=== PATIENT | male | born 1955 | race African-American/Black ===

== ENCOUNTER 2016-10-01 10:23 | Emergency (ER) | payer OTHER ==
[2016-10-01] MEDS ORDERED: METOCLOPRAMIDE HCL ORAL SOLN 10 MG/10 ML UDCUP PO ONE (11:03)
[2016-10-01] MEDS ORDERED: LIDOCAINE 2% VISCOUS SOLN 20 ML UDCUP PO ONE (11:03)
[2016-10-01] MEDS ORDERED: MAG HYDROX/AL HYDROX/SIMETH SUSP 30 ML UDCUP PO ONE (11:03)
--- NOTE | 2016-10-01 11:09 | ER Document Report ---
ED GI/ - General Chief Complaint: Upper Abdominal Pain Stated Complaint: STOMACH PAIN Time Seen by Provider: 10/01/16 11:03 Notes: The patient is a 61-year-old male, past medical history GERD, cholecystectomy, occasional alcohol use, presents with 1 day of epigastric burning, similar to his prior episodes of GERD. He had an EGD which showed gastritis, but he is no longer taking a PPI or H2 amy. Patient denies nausea, vomiting, chest pain , back pain, fevers, headache or urinary symptoms TRAVEL OUTSIDE OF THE [place] IN LAST 30 DAYS: No - Related Data Allergies/Adverse Reactions: chlorthalidone [Chlorthalidone] Allergy (Verified 10/01/16 10:32) diazepam [From Valium] Allergy (Verified 10/01/16 10:32) hydrochlorothiazide [Hydrochlorothiazide] Allergy (Verified 10/01/16 10:32) lisinopril [Lisinopril] Allergy (Verified 10/01/16 10:32) meperidine HCl [From Demerol] Allergy (Verified 10/01/16 10:32) metoprolol [Metoprolol] Allergy (Verified 10/01/16 10:32) niacin [Niacin] Allergy (Verified 10/01/16 10:32) saccharin [Saccharin] Allergy (Verified 10/01/16 10:32) terazosin [Terazosin] Allergy (Verified 10/01/16 10:32) tiotropium bromide [From Spiriva with HandiHaler] Allergy (Verified 10/01/16 10: 32) Past Medical History - General Information source: Patient - Social History Smoking Status: Former Smoker Frequency of alcohol use: Occasional Drug Abuse: None Family History: Reviewed & Not Pertinent Patient has suicidal ideation: No Patient has homicidal ideation: No - Past Medical History Cardiac Medical History: Reports: Hx Heart Attack, Hx Hypercholesterolemia, Hx Hypertension Pulmonary Medical History: Reports: Hx COPD Denies: Hx Asthma Renal/ Medical History: Denies: Hx Peritoneal Dialysis GI Medical History: Reports: Hx Gastroesophageal Reflux Disease Past Surgical History: Reports: Hx Cholecystectomy, Hx Neurologic Surgery - leaking csf fluid from ear, Hx Orthopedic Surgery - foot - Immunizations Immunizations up to date: Yes Hx Diphtheria, Pertussis, Tetanus Vaccination: Yes Review of Systems - Review of Systems Notes: REVIEW OF SYSTEMS: CONSTITUTIONAL: -fevers, -chills EENT: -eye pain, -difficulty swallowing, -nasal congestion CARDIOVASCULAR:-chest pain, -syncope. RESPIRATORY: -cough, -SOB GASTROINTESTINAL: +epigastric abdominal pain, -nausea, -vomiting, -diarrhea GENITOURINARY: -dysuria, -hematuria MUSCULOSKELETAL: -back pain, -neck pain SKIN: -rash or skin lesions. HEMATOLOGIC: -easy bruising or bleeding. LYMPHATIC: -swollen, enlarged glands. NEUROLOGICAL: -altered mental status or loss of consciousness, -headache, - neurologic symptoms PSYCHIATRIC: -anxiety, -depression. ALL OTHER SYSTEMS REVIEWED AND NEGATIVE. Physical Exam - Notes Notes: PHYSICAL EXAMINATION: GENERAL: Well-appearing, well-nourished and in no acute distress. HEAD: Atraumatic, normocephalic. EYES: Pupils equal round and reactive to light, extraocular movements intact, sclera anicteric, conjunctiva are normal. ENT: nares patent, oropharynx clear without exudates. Moist mucous membranes. NECK: Normal range of motion, supple without lymphadenopathy LUNGS: Breath sounds clear to auscultation bilaterally and equal. No wheezes rales or rhonchi. HEART: Regular rate and rhythm without murmurs ABDOMEN: Soft, mild epigastric tenderness, normoactive bowel sounds. No guarding, no rebound. No masses appreciated. EXTREMITIES: Normal range of motion, no pitting or edema. No cyanosis. NEUROLOGICAL: Cranial nerves grossly intact. Normal speech, normal gait. Normal sensory and motor exams. PSYCH: Normal mood, normal affect. SKIN: Warm, Dry, normal turgor, no rashes or lesions noted. Course - Re-evaluation Re-evalutation: Labs are unremarkable, including a normal lipase and troponin levels. EKG does not show any active ischemia. After GI cocktail, patient feels much better. Will send home with [facility] and follow-up with his GI doctor. - Laboratory Result Diagrams: 10/01/16 11:20 10/01/16 11:20 Laboratory results interpreted by me: 10/01/16 10/01/16 11:20 11:20 WBC 2.9 L Hgb 13.3 L Seg Neutrophils % 37.4 L Monocytes % 18.4 H Eosinophils % 7.1 H Basophils % 3.4 H Absolute Neutrophils 1.1 L Potassium 5.1 H Creatine Kinase 263 H Discharge - Discharge Clinical Impression: Epigastric pain Condition: Good Disposition: HOME, SELF-CARE Additional Instructions: Reflux Disease (GERD) Gastro-Esophageal Reflux Disease (GERD) is caused by stomach acid refluxing back up into the esophagus. The valve at the end of the esophagus may be weak. This is common in persons with a hiatal hernia. GERD symptoms can include indigestion, chest pain, heartburn, or food "sticking." Certain foods, alcohol, and aspirin can make GERD worse. Treatment depends on the severity. Usually, antacids or acid-suppressing medicines are used. When the esophagus is acutely inflamed, the physician will often prescribe membrane-protective drugs such as Carafate. Some patients benefit from medication such as Reglan that tightens the valve at the top of the stomach. Avoid those foods that bring on your symptoms. For many people, these foods are coffee, chocolate, onions, garlic, and carbonated drinks. Don't use alcohol, aspirin, caffeine, or tobacco. Don't eat late at night -- within 4 hours of bedtime. Don't over-eat. If necessary, elevate the head of your bed about 4 inches so that stomach acid will not roll up into your esophagus. Call the doctor if you develop severe chest pain, inability to swallow fluids, fever, or worsening symptoms. Prescriptions: Omeprazole Magnesium [Prilosec Otc] 20 mg PO BID #20 tablet.dr Referrals: VALDEZ TRIANA MD [ACTIVE STAFF] - Follow up as needed
[2016-10-01 11:41] LABS: ABSOLUTE BASOPHILS # (AUTO) 0.1 10^3/uL (0.0-0.2); ABSOLUTE EOSINOPHILS # (AUTO) 0.2 10^3/uL (0.0-0.6); ABSOLUTE MONOCYTES (AUTO) 0.5 10^3/uL (0.1-1.4); ABSOLUTE NEUT (AUTO) 1.1 10^3/uL (1.7-8.2); BASOPHILS % (AUTO) 3.4 % (0-2); EOSINOPHILS % (AUTO) 7.1 % (0-6); HEMATOCRIT 39.8 % (37.9-51.0); HEMOGLOBIN 13.3 g/dL (13.5-17.0); HGB HCT DIFFERENCE 0.1; LYMPHOCYTES % (AUTO) 33.7 % (13-45); MEAN CORPUSCULAR HEMOGLOBIN 30.3 pg (27.0-33.4); MEAN CORPUSCULAR HGB CONC 33.3 g/dL (32.0-36.0); MEAN CORPUSCULAR VOLUME 91 fl (80-97); MONOCYTES % (AUTO) 18.4 % (3-13); RED BLOOD COUNT 4.37 10^6/uL (4.35-5.55); RED CELL DISTRIBUTION WIDTH 13.7 % (11.5-14.0); SEGMENTED NEUTROPHILS % (AUTO) 37.4 % (42-78); WHITE BLOOD COUNT 2.9 10^3/uL (4.0-10.5)
--- NOTE | 2016-10-01 11:52 | EKG REPORT ---
SEVERITY:- OTHERWISE NORMAL ECG - SINUS RHYTHM RIGHT AXIS DEVIATION : Confirmed by: Jhonny Carpenter MD 01-Oct-2016 11:52:15
[2016-10-01 12:03] LABS: ALANINE AMINOTRANSFERASE 32 U/L (21-72); ALBUMIN 4.2 g/dL (3.5-5.0); ALKALINE PHOSPHATASE 56 U/L (38-126); ANION GAP 10 (5-19); ASPARTATE AMINO TRANSFERASE 25 U/L (17-59); BILIRUBIN,DIRECT 0.3 mg/dL (0.0-0.4); BILIRUBIN,TOTAL 0.5 mg/dL (0.2-1.3); BLOOD UREA NITROGEN 8 mg/dL (7-20); CALCIUM 9.7 mg/dL (8.4-10.2); CARBON DIOXIDE 30 mmol/L (22-30); CHLORIDE 101 mmol/L (98-107); CREATINE KINASE 263 U/L (55-170); CREATININE RESULT 0.93 mg/dL (0.52-1.25); GLUCOSE 109 mg/dL (75-110); LIPASE 55.5 U/L (23-300); POTASSIUM 5.1 mmol/L (3.6-5.0); SODIUM 140.9 mmol/L (137-145); TOTAL PROTEIN 6.8 g/dL (6.3-8.2)
[2016-10-01 12:30] VITALS: BP 128/95
== END 2016-10-01 12:30 | disposition home or self-care (01) ==
LOC: ER 10:23
DX: R10.13 Epigastric pain (principal); I10 Essential (primary) hypertension; I25.2 Old myocardial infarction; Z87.19 Personal history of other diseases of the digestive system; Z90.49 Acquired absence of other specified parts of digestive tract; Z88.8 Allergy status to other drugs, medicaments and biological substances; Z88.5 Allergy status to narcotic agent; Z87.891 Personal history of nicotine dependence
CPT/HCPCS: 36415; 80053; 82550; 83690; 84484; 85025; 93005; 93010; 99284

== ENCOUNTER 2017-02-16 12:59 | Emergency (ER) | payer OTHER ==
[2017-02-16] MEDS ORDERED: IPRATROPIUM/ALBUTEROL 0.5-2.5 MG/3 ML AMPUL NEB ONE ×3 (13:31)
[2017-02-16] MEDS ORDERED: PREDNISONE 20 MG TABLET PO ONE (13:31)
--- NOTE | 2017-02-16 13:34 | ER Document Report ---
ED General - General Chief Complaint: Shortness Of Breath Stated Complaint: DIFFICULTY BREATHING Time Seen by Provider: 02/16/17 13:31 Mode of Arrival: Ambulatory Information source: Patient Notes: 61-year-old male history of COPD presents with complaints of shortness of breath yellow productive cough of one-week duration. Patient states this feels like COPD exacerbation. Patient has been trying breathing treatments at home. Normally sats between 94-90%. TRAVEL OUTSIDE OF THE [place] IN LAST 30 DAYS: No - HPI Onset: Last week Onset/Duration: Persistent Quality of pain: No pain Severity: Mild Pain Level: Denies Associated symptoms: Productive cough, Shortness of breath Exacerbated by: Coughing Relieved by: Denies Similar symptoms previously: Yes Recently seen / treated by doctor: Yes - Related Data Allergies/Adverse Reactions: chlorthalidone [Chlorthalidone] Allergy (Verified 10/01/16 10:32) diazepam [From Valium] Allergy (Verified 10/01/16 10:32) hydrochlorothiazide [Hydrochlorothiazide] Allergy (Verified 10/01/16 10:32) lisinopril [Lisinopril] Allergy (Verified 10/01/16 10:32) meperidine HCl [From Demerol] Allergy (Verified 10/01/16 10:32) metoprolol [Metoprolol] Allergy (Verified 10/01/16 10:32) niacin [Niacin] Allergy (Verified 10/01/16 10:32) saccharin [Saccharin] Allergy (Verified 10/01/16 10:32) terazosin [Terazosin] Allergy (Verified 10/01/16 10:32) tiotropium bromide [From Spiriva with HandiHaler] Allergy (Verified 10/01/16 10: 32) Past Medical History - Social History Smoking Status: Former Smoker Cigarette use (# per day): No Chew tobacco use (# tins/day): No Smoking Education Provided: No Frequency of alcohol use: Occasional Drug Abuse: None Family History: Reviewed & Not Pertinent - Past Medical History Cardiac Medical History: Reports: Hx Heart Attack, Hx Hypercholesterolemia, Hx Hypertension Pulmonary Medical History: Reports: Hx COPD Denies: Hx Asthma Renal/ Medical History: Denies: Hx Peritoneal Dialysis GI Medical History: Reports: Hx Gastroesophageal Reflux Disease Past Surgical History: Reports: Hx Cholecystectomy, Hx Neurologic Surgery - leaking csf fluid from ear, Hx Orthopedic Surgery - foot - Immunizations Immunizations up to date: Yes Hx Diphtheria, Pertussis, Tetanus Vaccination: Yes Review of Systems - Review of Systems Notes: REVIEW OF SYSTEMS: CONSTITUTIONAL : Denies fever, chills, or sweats. Denies recent illness. EENT: Denies eye, ear, throat, or mouth pain or symptoms. Denies nasal or sinus congestion or discharge. Denies throat, tongue, or mouth swelling or difficulty swallowing. CARDIOVASCULAR: Denies chest pain. Denies palpitations or racing or irregular heart beat. Denies ankle edema. RESPIRATORY: shortness of breath cough GASTROINTESTINAL: Denies abdominal pain or distention. Denies nausea, vomiting , or diarrhea. Denies blood in vomitus, stools, or per rectum. Denies black, tarry stools. Denies constipation. GENITOURINARY: Denies difficulty urinating, painful urination, burning, frequency, blood in urine, or discharge. MUSCULOSKELETAL: Denies back or neck pain or stiffness. Denies joint pain or swelling. SKIN: Denies rash, lesions or sores. HEMATOLOGIC : Denies easy bruising or bleeding. LYMPHATIC: Denies swollen, enlarged glands. NEUROLOGICAL: Denies confusion or altered mental status. Denies passing out or loss of consciousness. Denies dizziness or lightheadedness. Denies headache. Denies weakness or paralysis or loss of use of either side. Denies problems with gait or speech. Denies sensory loss, numbness, or tingling. Denies seizures. PSYCHIATRIC: Denies anxiety or stress. Denies depression, suicidal ideation, or homicidal ideation. ALL OTHER SYSTEMS REVIEWED AND NEGATIVE. Dictation was performed using [employer] voice recognition software PHYSICAL EXAMINATION: GENERAL: Well-appearing, well-nourished and in no acute distress. HEAD: Atraumatic, normocephalic. EYES: Pupils equal round and reactive to light, extraocular movements intact, sclera anicteric, conjunctiva are normal. ENT: Nares patent, oropharynx clear without exudates. Moist mucous membranes. NECK: Normal range of motion, supple without lymphadenopathy LUNGS: decreased breath sounds no resp distress HEART: Regular rate and rhythm without murmurs ABDOMEN: Soft, nontender, nondistended abdomen. No guarding, no rebound. No masses appreciated. Musculoskeletal: Normal range of motion, no pitting or edema. No cyanosis. NEUROLOGICAL: Cranial nerves grossly intact. Normal speech, normal gait. Normal sensory, motor exams PSYCH: Normal mood, normal affect. SKIN: Warm, Dry, normal turgor, no rashes or lesions noted. Physical Exam - Vital signs Vitals: Temp Pulse Resp BP Pulse Ox 98 F 109 H 18 155/99 H 94 02/16/17 13:03 02/16/17 13:03 02/16/17 13:03 02/16/17 13:03 02/16/17 13:03 Course - Re-evaluation Re-evalutation: 02/16/17 13:34 Patient has probable COPD exacerbation 02/16/17 14:26 Chest x-ray is consistent with COPD no pneumonia noted 02/16/17 15:32 Patient notes significant improvement of his breathing after breathing treatments He will be discharged home with steroids. O2 sat on my recheck was 96% After performing a Medical Screening Examination, I estimate there is LOW risk for ACUTE CORONARY SYNDROME, RESPIRATORY FAILURE, SEPSIS OR MENINGITIS, thus I consider the discharge disposition reasonable. I have reevaluated this patient multiple times and no significant life threatening changes are noted. The patient and I have discussed the diagnosis and risks, and we agree with discharging home with close follow-up. We also discussed returning to the Emergency Department immediately if new or worsening symptoms occur. We have discussed the symptoms which are most concerning (e.g., changing or worsening pain, trouble swallowing or breathing, neck stiffness, fever) that necessitate immediate return. - Vital Signs Vital signs: Temp Pulse Resp BP Pulse Ox 98 F 109 H 18 155/99 H 94 02/16/17 13:03 02/16/17 13:03 02/16/17 13:18 02/16/17 13:03 02/16/17 13:03 - Diagnostic Test Radiology reviewed: Image reviewed, Reports reviewed - copd Discharge - Discharge Clinical Impression: COPD exacerbation, SOB (shortness of breath) Condition: Stable Disposition: HOME, SELF-CARE Instructions: Chronic Obstructive Lung Disease ([facility]) Additional Instructions: Follow up with your physician tomorrow for further care or return to the ED IMMEDIATELY if symptoms worsen or new concerns occur. If you cannot afford to follow up with your primary care physician a list of low cost clinics have been provided at the end of your discharge papers as well. Prescriptions: Prednisone [Deltasone 20 mg Tablet] 3 tab PO DAILY 5 Days tablet
--- NOTE | 2017-02-16 14:18 | RADIOLOGY REPORT (SQ) ---
EXAM DESCRIPTION: CHEST PA/LAT COMPLETED DATE/TIME: 02/16/2017 2:10 pm REASON FOR STUDY: copd exacerbvation COMPARISON: 04/22/2016 NUMBER OF VIEWS: Two view. TECHNIQUE: Frontal and lateral radiographic views of the chest acquired. LIMITATIONS: None. FINDINGS: LUNGS AND PLEURA: No opacities, masses or pneumothorax. No pleural effusion. Attenuated bl ood vessels and flattened elvis-diaphragms. MEDIASTINUM AND HILAR STRUCTURES: No masses. No contour abnormalities. HEART AND VASCULAR STRUCTURES: Heart normal in size and contour. No evidence for failure. BONES: No acute findings. HARDWARE: None in the chest. OTHER: No other significant finding. IMPRESSION: COPD. NO ACUTE RADIOGRAPHIC FINDING IN THE CHEST. TECHNICAL DOCUMENTATION: JOB ID: [id number] 2043 [employer]- All Rights Reserved
[2017-02-16 16:35] VITALS: BP 141/99
== END 2017-02-16 15:45 | disposition home or self-care (01) ==
LOC: ER 12:59
DX: J44.1 Chronic obstructive pulmonary disease with (acute) exacerbation (principal); R06.02 Shortness of breath; R05 Cough; I10 Essential (primary) hypertension; I25.2 Old myocardial infarction; Z88.8 Allergy status to other drugs, medicaments and biological substances; Z88.5 Allergy status to narcotic agent; Z87.891 Personal history of nicotine dependence
CPT/HCPCS: 94640 ×2; 99284; 71020; J7512; J7620

== ENCOUNTER 2017-06-09 04:59 | Emergency (ER) | payer OTHER ==
[2017-06-09] MEDS ORDERED: NORMAL SALINE 1000 ML 1,000 ML IV ONE ×3 (05:21→05:28)
[2017-06-09] MEDS ORDERED: ACETAMINOPHEN 325 MG TABLET PO ONE (05:26)
[2017-06-09] MEDS ORDERED: ALBUTEROL SULFATE 0.083% NEB 2.5 MG/3 ML AMPUL NEB ONE (05:29)
[2017-06-09] MEDS ORDERED: MAGNESIUM SULFATE/D5W 1 GM/100 ML RTUPB IV ONE (05:29)
[2017-06-09] MEDS ORDERED: METHYLPREDNISOLONE INJ 125 MG/2 ML SDV IV ONE (05:29)
--- NOTE | 2017-06-09 05:31 | ER Document Report ---
ED Medical Screen (RME) - General Chief Complaint: Breathing Difficulty Stated Complaint: FLU LIKE SYMPTOMS Time Seen by Provider: 06/09/17 05:21 Information source: Patient Notes: Patient presents with cough and fever with diarrhea that started yesterday. Patient states difficulty breathing started tonight. Patient reports having numerous episodes of diarrhea today. Patient denies any nausea or vomiting. Patient has recently been exposed to his sister who tested positive for influenza type A. hx: COPD I have greeted and performed a rapid initial assessment of this patient. A comprehensive ED assessment and evaluation of the patient, analysis of test results and completion of the medical decision making process will be conducted by additional ED providers. TRAVEL OUTSIDE OF THE [place] IN LAST 30 DAYS: No - Related Data Allergies/Adverse Reactions: chlorthalidone [Chlorthalidone] Allergy (Verified 10/01/16 10:32) diazepam [From Valium] Allergy (Verified 10/01/16 10:32) hydrochlorothiazide [Hydrochlorothiazide] Allergy (Verified 10/01/16 10:32) lisinopril [Lisinopril] Allergy (Verified 10/01/16 10:32) meperidine HCl [From Demerol] Allergy (Verified 10/01/16 10:32) metoprolol [Metoprolol] Allergy (Verified 10/01/16 10:32) niacin [Niacin] Allergy (Verified 10/01/16 10:32) saccharin [Saccharin] Allergy (Verified 10/01/16 10:32) terazosin [Terazosin] Allergy (Verified 10/01/16 10:32) tiotropium bromide [From Spiriva with HandiHaler] Allergy (Verified 10/01/16 10: 32) Past Medical History - Social History Family history: Reviewed & Not Pertinent - Past Medical History Cardiac Medical History: Reports: Hx Heart Attack, Hx Hypercholesterolemia, Hx Hypertension Pulmonary Medical History: Reports: Hx COPD Denies: Hx Asthma Renal/ Medical History: Denies: Hx Peritoneal Dialysis GI Medical History: Reports: Hx Gastroesophageal Reflux Disease Past Surgical History: Reports: Hx Cholecystectomy, Hx Neurologic Surgery - leaking csf fluid from ear, Hx Orthopedic Surgery - foot - Immunizations Immunizations up to date: Yes Hx Diphtheria, Pertussis, Tetanus Vaccination: Yes History of Influenza Vaccine for 02/2017 - 07/2017 Season: Refused Physical Exam - Vital signs Vitals: Temp Pulse Resp BP Pulse Ox 102.7 F H 146 H 32 H 146/89 H 90 L 06/09/17 05:26 06/09/17 05:26 06/09/17 05:06/09/17 05:06/09/17 05:26 - General In distress: Moderate - Cardiovascular Rhythm: Tachycardia Heart sounds: S1 appreciated, S2 appreciated Murmur: No Course - Re-evaluation Re-evalutation: 06/09/17 05:31 Dr. Villa to bedside for exam, BiPAP ordered 06/09/17 05:35 Patient's heart rate 130s, RT at bedside to initiate BiPAP - Vital Signs Vital signs: Temp Pulse Resp BP Pulse Ox 102.7 F H 146 H 32 H 146/89 H 90 L 06/09/17 05:26 06/09/17 05:26 06/09/17 05:26 06/09/17 05:26 06/09/17 05:26
[2017-06-09 05:49] LABS: ABSOLUTE LYMPHOCYTES (AUTO) 0.5 10^3/uL (0.5-4.7); ABSOLUTE MONOCYTES (AUTO) 0.7 10^3/uL (0.1-1.4); ABSOLUTE NEUT (AUTO) 5.4 10^3/uL (1.7-8.2); BASOPHILS % (AUTO) 0.7 % (0-2); EOSINOPHILS % (AUTO) 0.1 % (0-6); HEMATOCRIT 46.8 % (37.9-51.0); LYMPHOCYTES % (AUTO) 6.8 % (13-45); MEAN CORPUSCULAR HEMOGLOBIN 31.4 pg (27.0-33.4); MEAN CORPUSCULAR HGB CONC 34.2 g/dL (32.0-36.0); MEAN CORPUSCULAR VOLUME 92 fl (80-97); MONOCYTES % (AUTO) 11.1 % (3-13); PLATELET COUNT 218 10^3/uL (150-450); RED BLOOD COUNT 5.11 10^6/uL (4.35-5.55); RED CELL DISTRIBUTION WIDTH 13.8 % (11.5-14.0); SEGMENTED NEUTROPHILS % (AUTO) 81.3 % (42-78); TOTAL CELLS COUNTED % (AUTO) 100 %; WHITE BLOOD COUNT 6.7 10^3/uL (4.0-10.5)
[2017-06-09 05:53] LABS: VENOUS BLOOD BASE EXCESS 1.9 mmol/L; VENOUS BLOOD HCO3 28.2 mmol/L (20-32); VENOUS BLOOD PCO2 49.5 mmHg (35-63); VENOUS BLOOD PH 7.37 (7.30-7.42)
--- NOTE | 2017-06-09 06:09 | RADIOLOGY REPORT (SQ) ---
EXAM DESCRIPTION: CHEST SINGLE VIEW CLINICAL HISTORY: cough COMPARISON: None. FINDINGS: Single frontal view of the chest. The cardiomediastinal silhouette has normal size and contour. No consolidation, pneumothorax, or pleural effusion. No displaced rib fractures identified. Hyperinflation. Upper abdominal soft tissues are unremarkable. IMPRESSION: 1. No acute pulmonary process identified. Findings suggest obstructive lung disease.
[2017-06-09 06:11] LABS: INTERNATIONAL RATION (INR) 0.97; PROTHROMBIN TIME 13.6 SEC (11.4-15.4)
[2017-06-09 06:13] LABS: A TYPE INFLUENZA AG NEGATIVE (NEGATIVE); B INFLUENZA AG NEGATIVE (NEGATIVE)
[2017-06-09] MEDS ORDERED: OSELTAMIVIR PHOSPHATE 75 MG CAPSULE PO ONE (06:29)
--- NOTE | 2017-06-09 06:35 | ER Document Report ---
ED General - General Chief Complaint: Breathing Difficulty Stated Complaint: FLU LIKE SYMPTOMS Time Seen by Provider: 06/09/17 05:21 Mode of Arrival: Ambulatory Information source: Patient TRAVEL OUTSIDE OF THE [place] IN LAST 30 DAYS: No - HPI Notes: Patient presents with cough and fever with diarrhea that started yesterday. Patient states difficulty breathing started tonight. Patient reports having numerous episodes of diarrhea today. Patient denies any nausea or vomiting. Patient has recently been exposed to his sister who tested positive for influenza type A. hx: COPD Patient reports he is out of his Advair. Patient denies any chest pain. No abd pain. - Related Data Allergies/Adverse Reactions: chlorthalidone [Chlorthalidone] Allergy (Verified 10/01/16 10:32) diazepam [From Valium] Allergy (Verified 10/01/16 10:32) hydrochlorothiazide [Hydrochlorothiazide] Allergy (Verified 10/01/16 10:32) lisinopril [Lisinopril] Allergy (Verified 10/01/16 10:32) meperidine HCl [From Demerol] Allergy (Verified 10/01/16 10:32) metoprolol [Metoprolol] Allergy (Verified 10/01/16 10:32) niacin [Niacin] Allergy (Verified 10/01/16 10:32) saccharin [Saccharin] Allergy (Verified 10/01/16 10:32) terazosin [Terazosin] Allergy (Verified 10/01/16 10:32) tiotropium bromide [From Spiriva with HandiHaler] Allergy (Verified 10/01/16 10: 32) Past Medical History - General Information source: Patient - Social History Smoking Status: Former Smoker Frequency of alcohol use: None Family History: Reviewed & Not Pertinent Patient has suicidal ideation: No Patient has homicidal ideation: No - Past Medical History Cardiac Medical History: Reports: Hx Heart Attack, Hx Hypercholesterolemia, Hx Hypertension Pulmonary Medical History: Reports: Hx COPD Denies: Hx Asthma Renal/ Medical History: Denies: Hx Peritoneal Dialysis GI Medical History: Reports: Hx Gastroesophageal Reflux Disease Past Surgical History: Reports: Hx Cholecystectomy, Hx Neurologic Surgery - leaking csf fluid from ear, Hx Orthopedic Surgery - foot - Immunizations Immunizations up to date: Yes Hx Diphtheria, Pertussis, Tetanus Vaccination: Yes Review of Systems - Review of Systems Notes: REVIEW OF SYSTEMS: CONSTITUTIONAL : Denies weight loss. EENT: Denies eye, ear, throat, or mouth pain or symptoms. Denies nasal or sinus congestion or discharge. Denies throat, tongue, or mouth swelling or difficulty swallowing. CARDIOVASCULAR: Denies chest pain. Denies palpitations or racing or irregular heart beat. Denies ankle edema. RESPIRATORY: Reports dyspnea and wheezing. GASTROINTESTINAL: Denies abdominal pain or distention. Denies nausea, vomiting. Denies blood in vomitus, stools, or per rectum. Denies black, tarry stools. Denies constipation. GENITOURINARY: Denies difficulty urinating, painful urination, burning, frequency, blood in urine, or discharge. MUSCULOSKELETAL: Denies back or neck pain or stiffness. Denies joint pain or swelling. SKIN: Denies rash, lesions or sores. HEMATOLOGIC : Denies easy bruising or bleeding. LYMPHATIC: Denies swollen, enlarged glands. NEUROLOGICAL: Denies confusion or altered mental status. Denies passing out or loss of consciousness. Denies dizziness or lightheadedness. Denies headache. Denies weakness or paralysis or loss of use of either side. Denies problems with gait or speech. Denies sensory loss, numbness, or tingling. Denies seizures. PSYCHIATRIC: Denies anxiety or stress. Denies depression, suicidal ideation, or homicidal ideation. ALL OTHER SYSTEMS REVIEWED AND NEGATIVE. Dictation was performed using [employer] voice recognition software Physical Exam - Vital signs Vitals: Temp Pulse Resp BP Pulse Ox 102.7 F H 146 H 32 H 146/89 H 90 L 06/09/17 05:26 06/09/17 05:26 06/09/17 05:26 06/09/17 05:06/09/17 05:26 - Notes Notes: PHYSICAL EXAMINATION: GENERAL: Well-appearing, well-nourished and in no acute distress after being placed on BiPAP. HEAD: Atraumatic, normocephalic. EYES: Pupils equal round and reactive to light, extraocular movements intact, sclera anicteric, conjunctiva are normal. ENT: Nares patent, oropharynx clear without exudates. Moist mucous membranes. NECK: Normal range of motion, supple without lymphadenopathy LUNGS: Breath course with scant wheeze. HEART: Tachycardic rate and regular rhythm without murmurs. Rate 115 ABDOMEN: Soft, nontender, nondistended abdomen. No guarding, no rebound. No masses appreciated. Musculoskeletal: Normal range of motion, no pitting or edema. No cyanosis. NEUROLOGICAL: Cranial nerves grossly intact. Normal speech, normal gait. Normal sensory, motor exams PSYCH: Normal mood, normal affect. SKIN: Warm, Dry, normal turgor, no rashes or lesions noted. Course - Re-evaluation Re-evalutation: 06/09/17 06:45 Patient was given DuoNeb treatment and Tylenol. Blood cultures were taken. Patient was given IV Solu-Medrol. On repeat exam wheezing was improved. The flu test was negative, but patient had some trouble performing the flu test. Given that the patient's sister that he lives with was positive for the flu, it is strongly assume that the patient did have the flu and patient was given Tamiflu by mouth. 06/09/17 06:46 Patient was bolused with IV fluids. Chest x-ray was negative. There is no evidence for congestive heart failure or obvious pneumonia. 06/09/17 11:58 Repeat lactate was improved. Repeat exam patient had scant wheeze was given additional nebulizer treatment. Afterwards he was watched for an additional few hours and had no wheezing and was ambulatory without complaint with stable O2 sats. No clinical suggestion for sepsis or pneumonia or systemic infection. - Vital Signs Vital signs: Temp Pulse Resp BP Pulse Ox 99.8 F 146 H 26 H 161/105 H 100 06/09/17 07:11 06/09/17 05:26 06/09/17 11:01 06/09/17 11:00 06/09/17 11:01 - Laboratory Result Diagrams: 06/09/17 05:29 06/09/17 06:56 Laboratory results interpreted by me: 06/09/17 06/09/17 06/09/17 05:29 05:29 06:56 Seg Neutrophils % 81.3 H Lymphocytes % 6.8 L Sodium 134.5 L Lactic Acid 2.5 H Calcium 8.1 L Total Protein 5.8 L Albumin 3.3 L Urine Ketones Urine Blood 06/09/17 09:08 Seg Neutrophils % Lymphocytes % Sodium Lactic Acid Calcium Total Protein Albumin Urine Ketones TRACE H Urine Blood SMALL H - EKG Interpretation by Me Additional EKG results interpreted by me: 06/09/17 06:47 EKG as interpreted by me showed sinus tachycardia heart rate of 135. There was no gross evidence for acute [place] or ischemia noted. There is no significant change from previous EKG from 10/01, with the exception of the tachycardic rate. Discharge - Discharge Clinical Impression: COPD with acute exacerbation, Influenza Fever Qualifiers: Fever type: unspecified Qualified Code(s): R50.9 - Fever, unspecified Condition: Stable Disposition: HOME, SELF-CARE Instructions: Chronic Obstructive Lung Disease ([facility]), Fever ([facility]), Influenza ( [facility]) [id number] Additional Instructions: Drink plenty fluids. Return to the emergency department in case of difficulty breathing or high fever. Prescriptions: Fluticasone/Salmeterol [Advair 250-50 Diskus 28 dose] 1 inh IH Q12H #1 inhaler Oseltamivir Phosphate [Tamiflu 75 mg Capsule] 75 mg PO BID #10 capsule Prednisone [Deltasone 10 mg Tablet] 10 mg PO ASDIR PRN #21 tablet PRN Reason: Referrals: EVA HUNT MD [COMMUNITY BASED STAFF] - Follow up as needed
[2017-06-09 07:32] LABS: ALANINE AMINOTRANSFERASE 34 U/L (21-72); ALBUMIN 3.3 g/dL (3.5-5.0); ALKALINE PHOSPHATASE 55 U/L (38-126); ANION GAP 6 (5-19); ASPARTATE AMINO TRANSFERASE 34 U/L (17-59); BILIRUBIN,DIRECT 0.2 mg/dL (0.0-0.4); BILIRUBIN,TOTAL 0.4 mg/dL (0.2-1.3); BLOOD UREA NITROGEN 17 mg/dL (7-20); CALCIUM 8.1 mg/dL (8.4-10.2); CARBON DIOXIDE 27 mmol/L (22-30); CHLORIDE 102 mmol/L (98-107); GLUCOSE 105 mg/dL (75-110); POTASSIUM 4.6 mmol/L (3.6-5.0); SODIUM 134.5 mmol/L (137-145); TOTAL PROTEIN 5.8 g/dL (6.3-8.2)
[2017-06-09] MEDS ORDERED: IPRATROPIUM/ALBUTEROL 0.5-2.5 MG/3 ML AMPUL NEB ONE (09:23)
[2017-06-09 09:30] LABS: APPEARANCE,URINE SLIGHTLY-CLOUDY; BILIRUBIN,URINE NEGATIVE (NEGATIVE); COLOR,URINE YELLOW; GLUCOSE, URINE NEGATIVE (NEGATIVE); KETONES,URINE TRACE mg/dL (NEGATIVE); LEUKOCYTE ESTERASE,URINE NEGATIVE (NEGATIVE); NITRITE,URINE NEGATIVE (NEGATIVE); PROTEIN,URINE NEGATIVE (NEGATIVE); URINE SPECIFIC GRAVITY 1.012; UROBILINOGEN,URINE NEGATIVE mg/dL (<2.0)
--- NOTE | 2017-06-09 11:55 | EKG REPORT ---
SEVERITY:- ABNORMAL ECG - SINUS TACHYCARDIA RIGHT AXIS DEVIATION NONSPECIFIC T ABNORMALITIES, INFERIOR LEADS : Confirmed by: Gogo Méndez MD 09-Jun-2017 11:54:56
[2017-06-09 12:09] VITALS: BP 168/107
== END 2017-06-09 12:09 | disposition home or self-care (01) ==
LOC: ER 04:59
DX: J44.1 Chronic obstructive pulmonary disease with (acute) exacerbation (principal); J11.1 Influenza due to unidentified influenza virus with other respiratory manifestations; R50.9 Fever, unspecified; R00.0 Tachycardia, unspecified; R05 Cough; R19.7 Diarrhea, unspecified; I10 Essential (primary) hypertension; I25.2 Old myocardial infarction; Z88.8 Allergy status to other drugs, medicaments and biological substances; Z88.5 Allergy status to narcotic agent; Z87.891 Personal history of nicotine dependence
CPT/HCPCS: 93005; 94640; 99284; 96360; 96361; 36415; 87040; 87086; 82962; 83735; 85025; 85610; 87088; 80053; 81001; 87186; 82803; 83605; 87804; 71045; 93010; 94660; J2930; J3475; J3490; J7030; J7620

== ENCOUNTER 2017-06-17 19:00 | Emergency (ER) | payer OTHER ==
[2017-06-17] MEDS ORDERED: ACETAMINOPHEN 325 MG TABLET PO ONE (19:39)
[2017-06-17] MEDS ORDERED: NORMAL SALINE 1000 ML 1,000 ML IV ONE (19:39)
[2017-06-17] MEDS ORDERED: IPRATROPIUM/ALBUTEROL 0.5-2.5 MG/3 ML AMPUL NEB ONE (19:40)
[2017-06-17] MEDS ORDERED: CEFTRIAXONE 2 GM/D5W RTU 2 GM/50 ML RTUPB IV ONE (19:42)
--- NOTE | 2017-06-17 19:43 | ER Document Report ---
ED Medical Screen (RME) - General Chief Complaint: Breathing Difficulty Stated Complaint: BREATHING PROBLEMS Time Seen by Provider: 06/17/17 19:39 Notes: pt has cough/cold/fever/congestion. no relief from inhalers. seen here last week and states he feels no better. no relief from home meds. TRAVEL OUTSIDE OF THE [place] IN LAST 30 DAYS: No - Related Data Allergies/Adverse Reactions: chlorthalidone [Chlorthalidone] Allergy (Verified 06/17/17 19:39) diazepam [From Valium] Allergy (Verified 06/17/17 19:39) hydrochlorothiazide [Hydrochlorothiazide] Allergy (Verified 06/17/17 19:39) lisinopril [Lisinopril] Allergy (Verified 06/17/17 19:39) meperidine HCl [From Demerol] Allergy (Verified 06/17/17 19:39) metoprolol [Metoprolol] Allergy (Verified 06/17/17 19:39) niacin [Niacin] Allergy (Verified 06/17/17 19:39) saccharin [Saccharin] Allergy (Verified 06/17/17 19:39) terazosin [Terazosin] Allergy (Verified 06/17/17 19:39) tiotropium bromide [From Spiriva with HandiHaler] Allergy (Verified 06/17/17 19: 39) Past Medical History - Social History Chew tobacco use (# tins/day): No Frequency of alcohol use: None Drug Abuse: None Family history: Reviewed & Not Pertinent - Past Medical History Cardiac Medical History: Reports: Hx Heart Attack, Hx Hypercholesterolemia, Hx Hypertension Pulmonary Medical History: Reports: Hx COPD Denies: Hx Asthma Renal/ Medical History: Denies: Hx Peritoneal Dialysis GI Medical History: Reports: Hx Gastroesophageal Reflux Disease Past Surgical History: Reports: Hx Cholecystectomy, Hx Neurologic Surgery - leaking csf fluid from ear, Hx Orthopedic Surgery - foot - Immunizations Immunizations up to date: Yes Hx Diphtheria, Pertussis, Tetanus Vaccination: Yes History of Influenza Vaccine for 02/2017 - 07/2017 Season: Refused Physical Exam - Vital signs Vitals: Temp Pulse Resp BP Pulse Ox 99.6 F 127 H 18 141/96 H 92 06/17/17 19:24 06/17/17 19:24 06/17/17 19:24 06/17/17 19:24 06/17/17 19:24 Course - Vital Signs Vital signs: Temp Pulse Resp BP Pulse Ox 99.6 F 127 H 18 141/96 H 92 06/17/17 19:24 06/17/17 19:24 06/17/17 19:24 06/17/17 19:24 06/17/17 19:24
[2017-06-17 20:53] LABS: ABSOLUTE BASOPHILS # (AUTO) 0.1 10^3/uL (0.0-0.2); ABSOLUTE EOSINOPHILS # (AUTO) 0.1 10^3/uL (0.0-0.6); ABSOLUTE LYMPHOCYTES (AUTO) 1.7 10^3/uL (0.5-4.7); ABSOLUTE MONOCYTES (AUTO) 1.6 10^3/uL (0.1-1.4); ABSOLUTE NEUT (AUTO) 9.7 10^3/uL (1.7-8.2); EOSINOPHILS % (AUTO) 0.6 % (0-6); HEMOGLOBIN 15.1 g/dL (13.5-17.0); LYMPHOCYTES % (AUTO) 12.9 % (13-45); MEAN CORPUSCULAR HEMOGLOBIN 30.9 pg (27.0-33.4); MEAN CORPUSCULAR HGB CONC 33.5 g/dL (32.0-36.0); MEAN CORPUSCULAR VOLUME 92 fl (80-97); MONOCYTES % (AUTO) 12.2 % (3-13); PLATELET COUNT 423 10^3/uL (150-450); RED BLOOD COUNT 4.88 10^6/uL (4.35-5.55); RED CELL DISTRIBUTION WIDTH 13.7 % (11.5-14.0); SEGMENTED NEUTROPHILS % (AUTO) 73.3 % (42-78); TOTAL CELLS COUNTED % (AUTO) 100 %; WHITE BLOOD COUNT 13.2 10^3/uL (4.0-10.5)
[2017-06-17 20:55] LABS: VENOUS BLOOD BASE EXCESS 4.4 mmol/L; VENOUS BLOOD HCO3 31.1 mmol/L (20-32); VENOUS BLOOD PCO2 54.1 mmHg (35-63); VENOUS BLOOD PH 7.38 (7.30-7.42)
--- NOTE | 2017-06-17 20:59 | RADIOLOGY REPORT (SQ) ---
EXAM DESCRIPTION: CHEST PA/LAT COMPLETED DATE/TIME: 06/17/2017 8:42 pm REASON FOR STUDY: cough/congest COMPARISON: 2016 NUMBER OF VIEWS: Two view. TECHNIQUE: Frontal and lateral radiographic views of the chest acquired. LIMITATIONS: None. FINDINGS: LUNGS AND PLEURA: No opacities, masses or pneumothorax. No pleural effusion. Attenuated bl ood vessels and flattened elvis-diaphragms. MEDIASTINUM AND HILAR STRUCTURES: No masses. No contour abnormalities. HEART AND VASCULAR STRUCTURES: Heart normal in size and contour. No evidence for failure. BONES: No acute findings. HARDWARE: None in the chest. OTHER: No other significant finding. IMPRESSION: COPD. NO ACUTE RADIOGRAPHIC FINDING IN THE CHEST. TECHNICAL DOCUMENTATION: JOB ID: [id number] [employer]- All Rights Reserved
[2017-06-17] MEDS ORDERED: METHYLPREDNISOLONE INJ 125 MG/2 ML SDV IV ONE (21:08)
[2017-06-17 21:37] LABS: ALANINE AMINOTRANSFERASE 42 U/L (21-72); ALBUMIN 4.6 g/dL (3.5-5.0); ALKALINE PHOSPHATASE 63 U/L (38-126); ANION GAP 11 (5-19); ASPARTATE AMINO TRANSFERASE 39 U/L (17-59); BILIRUBIN,DIRECT 0.6 mg/dL (0.0-0.4); BLOOD UREA NITROGEN 14 mg/dL (7-20); CALCIUM 9.9 mg/dL (8.4-10.2); CARBON DIOXIDE 29 mmol/L (22-30); CHLORIDE 98 mmol/L (98-107); GLUCOSE 98 mg/dL (75-110); POTASSIUM 4.2 mmol/L (3.6-5.0); SODIUM 138.1 mmol/L (137-145); TOTAL PROTEIN 8.1 g/dL (6.3-8.2)
[2017-06-17 21:59] LABS: A TYPE INFLUENZA AG NEGATIVE (NEGATIVE); B INFLUENZA AG NEGATIVE (NEGATIVE)
[2017-06-17] MEDS ORDERED: ALBUTEROL SULFATE 0.083% NEB 2.5 MG/3 ML AMPUL NEB ONE (22:22)
--- NOTE | 2017-06-17 22:32 | EKG REPORT ---
SEVERITY:- OTHERWISE NORMAL ECG - SINUS TACHYCARDIA RIGHT AXIS DEVIATION : Confirmed by: Ramos Peñaloza 17-Jun-2017 22:32:13
[2017-06-18] MEDS ORDERED: CLONIDINE HCL 0.2 MG TABLET PO ONE (01:10)
--- NOTE | 2017-06-18 01:16 | ER Document Report ---
ED General - General Chief Complaint: Breathing Difficulty Stated Complaint: BREATHING PROBLEMS Time Seen by Provider: 06/17/17 19:39 Information source: Patient TRAVEL OUTSIDE OF THE [place] IN LAST 30 DAYS: No - HPI Patient complains to provider of: sob Onset: Last week Onset/Duration: Gradual, Waxing and waning Quality of pain: No pain Associated symptoms: Chills, Nonproductive cough, Shortness of breath Exacerbated by: Coughing Relieved by: Denies, Other - nebs and alb MDI at home without improvement - Related Data Allergies/Adverse Reactions: chlorthalidone [Chlorthalidone] Allergy (Verified 06/17/17 19:39) diazepam [From Valium] Allergy (Verified 06/17/17 19:39) hydrochlorothiazide [Hydrochlorothiazide] Allergy (Verified 06/17/17 19:39) lisinopril [Lisinopril] Allergy (Verified 06/17/17 19:39) meperidine HCl [From Demerol] Allergy (Verified 06/17/17 19:39) metoprolol [Metoprolol] Allergy (Verified 06/17/17 19:39) niacin [Niacin] Allergy (Verified 06/17/17 19:39) saccharin [Saccharin] Allergy (Verified 06/17/17 19:39) terazosin [Terazosin] Allergy (Verified 06/17/17 19:39) tiotropium bromide [From Spiriva with HandiHaler] Allergy (Verified 06/17/17 19: 39) Past Medical History - General Information source: Patient - Social History Smoking Status: Former Smoker Chew tobacco use (# tins/day): No Frequency of alcohol use: None Drug Abuse: None Lives with: Parents Family History: Reviewed & Not Pertinent Patient has suicidal ideation: No Patient has homicidal ideation: No - Past Medical History Cardiac Medical History: Reports: Hx Heart Attack, Hx Hypercholesterolemia, Hx Hypertension Pulmonary Medical History: Reports: Hx COPD Denies: Hx Asthma Neurological Medical History: Reports: None Endocrine Medical History: Reports: None Renal/ Medical History: Reports: None. Denies: Hx Peritoneal Dialysis Malignancy Medical History: Reports None GI Medical History: Reports: Hx Gastroesophageal Reflux Disease Musculoskeltal Medical History: Reports None Psychiatric Medical History: Reports: None Traumatic Medical History: Reports: None Past Surgical History: Reports: Hx Cholecystectomy, Hx Neurologic Surgery - leaking csf fluid from ear, Hx Orthopedic Surgery - foot - Immunizations Immunizations up to date: Yes Hx Diphtheria, Pertussis, Tetanus Vaccination: Yes Review of Systems - Review of Systems Constitutional: See HPI. denies: Fever EENT: Nose congestion Cardiovascular: No symptoms reported Respiratory: See HPI Gastrointestinal: No symptoms reported Genitourinary: No symptoms reported Male Genitourinary: No symptoms reported Musculoskeletal: No symptoms reported Skin: No symptoms reported Hematologic/Lymphatic: No symptoms reported Neurological/Psychological: No symptoms reported Physical Exam - Vital signs Vitals: Temp Pulse Resp BP Pulse Ox 99.6 F 127 H 18 141/96 H 92 06/17/17 19:24 06/17/17 19:24 06/17/17 19:24 06/17/17 19:24 06/17/17 19:24 Interpretation: Normal - Notes Notes: PHYSICAL EXAMINATION: GENERAL: Well-appearing, well-nourished and in no acute distress. HEAD: Atraumatic, normocephalic. EYES: Pupils equal round and reactive to light, extraocular movements intact, sclera anicteric, conjunctiva are normal. ENT: Nares patent, oropharynx clear without exudates. Moist mucous membranes. NECK: Normal range of motion, supple without lymphadenopathy LUNGS: Breath sounds clear to auscultation bilaterally and equal. Moderate inspiratory expiratory wheezing no rhonchi no rales HEART: Regular rate and rhythm without murmurs ABDOMEN: Soft, nontender, nondistended abdomen. No guarding, no rebound. No masses appreciated. Musculoskeletal: Normal range of motion, no pitting or edema. No cyanosis. NEUROLOGICAL: Cranial nerves grossly intact. Normal speech, normal gait. Normal sensory, motor exams PSYCH: Normal mood, normal affect. SKIN: Warm, Dry, normal turgor, no rashes or lesions noted. Course - Re-evaluation Re-evalutation: 06/18/17 01:13 Labs- All tests 24 hr 06/17/17 06/17/17 06/17/17 20:38 20:38 20:38 WBC 13.2 H RBC 4.88 Hgb 15.1 Hct 45.0 MCV 92 MCH 30.9 MCHC 33.5 RDW 13.7 Plt Count 423 Seg Neutrophils % 73.3 Lymphocytes % 12.9 L Monocytes % 12.2 Eosinophils % 0.6 Basophils % 1.0 Absolute Neutrophils 9.7 H Absolute Lymphocytes 1.7 Absolute Monocytes 1.6 H Absolute Eosinophils 0.1 Absolute Basophils 0.1 VBG pH VBG pCO2 VBG HCO3 VBG Base Excess Sodium 138.1 Potassium 4.2 Chloride 98 Carbon Dioxide 29 Anion Gap 11 BUN 14 Creatinine 0.96 Est GFR ( Amer) > 60 Est GFR (Non-Af Amer) > 60 Glucose 98 Lactic Acid 1.4 Calcium 9.9 Total Bilirubin 1.0 Direct Bilirubin 0.6 H Neonat Total Bilirubin Not Reportable Neonat Direct Bilirubin Not Reportable Neonat Indirect Bili Not Reportable AST 39 ALT 42 Alkaline Phosphatase 63 Troponin I Total Protein 8.1 Albumin 4.6 Influenza A (Rapid) Influenza B (Rapid) 06/17/17 06/17/17 06/17/17 20:38 20:38 21:00 WBC RBC Hgb Hct MCV MCH MCHC RDW Plt Count Seg Neutrophils % Lymphocytes % Monocytes % Eosinophils % Basophils % Absolute Neutrophils Absolute Lymphocytes Absolute Monocytes Absolute Eosinophils Absolute Basophils VBG pH 7.38 VBG pCO2 54.1 VBG HCO3 31.1 VBG Base Excess 4.4 Sodium Potassium Chloride Carbon Dioxide Anion Gap BUN Creatinine Est GFR ( Amer) Est GFR (Non-Af Amer) Glucose Lactic Acid Calcium Total Bilirubin Direct Bilirubin Neonat Total Bilirubin Neonat Direct Bilirubin Neonat Indirect Bili AST ALT Alkaline Phosphatase Troponin I < 0.012 Total Protein Albumin Influenza A (Rapid) NEGATIVE Influenza B (Rapid) NEGATIVE Chest X-Ray 06/17/17 19:39 IMPRESSION: COPD. NO ACUTE RADIOGRAPHIC FINDING IN THE CHEST. 06/18/17 01:15 Patient is resting comfortably laying back and sleeping in bed. Pulse ox is 97 % on room air. Lungs are clear to auscultation bilaterally. Heart rate is 102. Patient will be discharged home with steroids and antibiotics. He does have nebulizer solution and his albuterol inhaler. Patient was instructed to return to the emergency department if he has worsening of symptoms. He is to follow-up with his primary medical doctor in the next 2 days. 06/18/17 01:16 She states he did not take his clonidine 0.3 mg p.o. because he was here in the emergency department. I did give that to him. I told him to make sure he had his blood pressure checked in the next few days to make sure that it was not high. Patient verbalized understanding. - Vital Signs Vital signs: Temp Pulse Resp BP Pulse Ox 99.6 F 127 H 22 H 152/115 H 94 06/17/17 19:24 06/17/17 19:24 06/18/17 00:01 06/18/17 00:01 06/18/17 00:01 - Laboratory Result Diagrams: 06/17/17 20:38 06/17/17 20:38 Laboratory results interpreted by me: 06/17/17 06/17/17 20:38 20:38 WBC 13.2 H Lymphocytes % 12.9 L Absolute Neutrophils 9.7 H Absolute Monocytes 1.6 H Direct Bilirubin 0.6 H - Diagnostic Test Radiology reviewed: Image reviewed, Reports reviewed - EKG Interpretation by Me EKG shows normal: Sinus rhythm Rate: Tachycardia - 106 Bryant/QRS: Right axis deviation When compared to previous EKG there are: No significant change Discharge - Discharge Clinical Impression: COPD exacerbation, High blood pressure Condition: Stable Disposition: HOME, SELF-CARE Instructions: Chronic Obstructive Lung Disease ([facility]) Additional Instructions: Follow up with your physician tomorrow for further care or return to the ED IMMEDIATELY if symptoms worsen or new concerns occur. If you cannot afford to follow up with your primary care physician a list of low cost clinics have been provided at the end of your discharge papers as well. Prescriptions: Azithromycin [Zithromax 250 mg Tablet] 250 mg PO ASDIR PRN #6 tablet PRN Reason: Prednisone 40 mg PO DAILY 5 Days #10 tablet Forms: Elevated Blood Pressure
[2017-06-18 03:10] VITALS: BP 140/103
== END 2017-06-18 03:10 | disposition home or self-care (01) ==
LOC: ER 19:00
DX: J44.1 Chronic obstructive pulmonary disease with (acute) exacerbation (principal); I10 Essential (primary) hypertension; R09.81 Nasal congestion; E78.00 Pure hypercholesterolemia, unspecified; J44.9 Chronic obstructive pulmonary disease, unspecified; I25.2 Old myocardial infarction; Z90.49 Acquired absence of other specified parts of digestive tract; Z87.891 Personal history of nicotine dependence
CPT/HCPCS: 93005; 94640 ×2; 99285; 96375; 96365; 36415; 85025; 80053; 84484; 82803; 83605; 87804; 71046; 93010; J2930; J7030; J7620; J0696

== ENCOUNTER 2017-12-14 05:21 | Emergency (ER) | payer OTHER ==
[2017-12-14] MEDS ORDERED: ASPIRIN 81 MG TABLET, CHEWABLE PO ONE (06:17)
[2017-12-14 07:03] LABS: ABSOLUTE BASOPHILS # (AUTO) 0.1 10^3/uL (0.0-0.2); ABSOLUTE EOSINOPHILS # (AUTO) 0.1 10^3/uL (0.0-0.6); ABSOLUTE LYMPHOCYTES (AUTO) 0.8 10^3/uL (0.5-4.7); ABSOLUTE MONOCYTES (AUTO) 1.1 10^3/uL (0.1-1.4); ABSOLUTE NEUT (AUTO) 9.1 10^3/uL (1.7-8.2); BASOPHILS % (AUTO) 0.6 % (0-2); EOSINOPHILS % (AUTO) 0.5 % (0-6); HEMATOCRIT 43.6 % (37.9-51.0); HEMOGLOBIN 14.8 g/dL (13.5-17.0); LYMPHOCYTES % (AUTO) 7.3 % (13-45); MEAN CORPUSCULAR HGB CONC 33.9 g/dL (32.0-36.0); MEAN CORPUSCULAR VOLUME 92 fl (80-97); MONOCYTES % (AUTO) 9.8 % (3-13); PLATELET COUNT 239 10^3/uL (150-450); RED BLOOD COUNT 4.76 10^6/uL (4.35-5.55); SEGMENTED NEUTROPHILS % (AUTO) 81.8 % (42-78); TOTAL CELLS COUNTED % (AUTO) 100 %; WHITE BLOOD COUNT 11.1 10^3/uL (4.0-10.5)
[2017-12-14 07:09] LABS: INTERNATIONAL RATION (INR) 0.92; PROTHROMBIN TIME 12.9 SEC (11.4-15.4)
--- NOTE | 2017-12-14 07:09 | RADIOLOGY REPORT (SQ) ---
EXAM DESCRIPTION: XR CHEST 1 VIEW COMPLETED DATE/TME: 12/14/2017 06:17 CLINICAL HISTORY: 62 years Male, chest pain COMPARISON: 2.5.18 NUMBER OF VIEWS/TECHNIQUE: 1/AP FINDINGS: Increased emphysematous lung volume, clear parenchyma, normal cardiac silhouette, and intact bony thorax. IMPRESSION: No acute cardiopulmonary findings.
[2017-12-14 07:18] LABS: ALANINE AMINOTRANSFERASE 33 U/L (21-72); ALBUMIN 4.4 g/dL (3.5-5.0); ALKALINE PHOSPHATASE 64 U/L (38-126); ANION GAP 11 (5-19); ASPARTATE AMINO TRANSFERASE 28 U/L (17-59); BILIRUBIN,DIRECT 0.3 mg/dL (0.0-0.4); BILIRUBIN,TOTAL 0.7 mg/dL (0.2-1.3); BLOOD UREA NITROGEN 14 mg/dL (7-20); CALCIUM 9.7 mg/dL (8.4-10.2); CARBON DIOXIDE 27 mmol/L (22-30); CHLORIDE 103 mmol/L (98-107); CREATINE KINASE 163 U/L (55-170); GLUCOSE 97 mg/dL (75-110); TOTAL PROTEIN 7.3 g/dL (6.3-8.2)
[2017-12-14] MEDS ORDERED: NORMAL SALINE 1000 ML 500 ML IV ONE (07:22)
[2017-12-14] MEDS ORDERED: MORPHINE SULFATE 10 MG/ML INJ IV ONE (07:22)
--- NOTE | 2017-12-14 07:25 | ER Document Report ---
ED General - General Chief Complaint: Back Pain Stated Complaint: BACK PAIN Time Seen by Provider: 12/14/17 07:15 TRAVEL OUTSIDE OF THE [place] IN LAST 30 DAYS: No - HPI Notes: 62-year-old female with multiple health problems including known ACS presents with back pain. Patient describes pain in his right thoracic/lateral parathoracic region radiating down his right hip. Worse with motion and bending over. Sudden onset, no trauma, no precipitating event. Had some pleuritic component earlier that is now resolved. No fever, chills or sweats. No cough. No personal history of previous thromboembolic disease. Sudden onset , nonradiating except as described. No other modifying factors, no other associated symptoms, no other provocative or palliative factors. - Related Data Allergies/Adverse Reactions: chlorthalidone [Chlorthalidone] Allergy (Verified 06/17/17 19:39) diazepam [From Valium] Allergy (Verified 06/17/17 19:39) hydrochlorothiazide [Hydrochlorothiazide] Allergy (Verified 06/17/17 19:39) lisinopril [Lisinopril] Allergy (Verified 06/17/17 19:39) meperidine HCl [From Demerol] Allergy (Verified 06/17/17 19:39) metoprolol [Metoprolol] Allergy (Verified 06/17/17 19:39) niacin [Niacin] Allergy (Verified 06/17/17 19:39) saccharin [Saccharin] Allergy (Verified 06/17/17 19:39) terazosin [Terazosin] Allergy (Verified 06/17/17 19:39) tiotropium bromide [From Spiriva with HandiHaler] Allergy (Verified 06/17/17 19: 39) Past Medical History - Social History Smoking Status: Smoker,Current Status Unk Family History: Reviewed & Not Pertinent - Past Medical History Cardiac Medical History: Reports: Hx Heart Attack, Hx Hypercholesterolemia, Hx Hypertension Pulmonary Medical History: Reports: Hx COPD Denies: Hx Asthma Renal/ Medical History: Denies: Hx Peritoneal Dialysis GI Medical History: Reports: Hx Gastroesophageal Reflux Disease Past Surgical History: Reports: Hx Cholecystectomy, Hx Neurologic Surgery - leaking csf fluid from ear, Hx Orthopedic Surgery - foot - Immunizations Immunizations up to date: Yes Hx Diphtheria, Pertussis, Tetanus Vaccination: Yes Review of Systems - Review of Systems Notes: Review of systems as in the history of present illness, otherwise negative x 10 systems. Physical Exam - Vital signs Vitals: Temp Pulse Resp BP Pulse Ox 100.0 F 106 H 20 166/100 H 95 12/14/17 05:30 12/14/17 05:30 12/14/17 05:30 12/14/17 05:30 12/14/17 05:30 - Notes Notes: General: Well developed . HEENT: Normocephalic, atraumatic. Pupils equal round reactive to light. No JVD. Chest: No trauma. Respiratory: Good air exchange, normal excursion. Cardiac: Regular rhythm. No murmurs or gallops. Abdomen: Soft, benign. Nondistended. Nontender. Back: No asymmetry or gross abnormality. Motor: Grossly normal power and tone. Neurologic: Alert, nonfocal. Cranial nerves II-12 are intact. Sensation intact. Vascular: Well perfused. Normal peripheral pulses. Skin: No petechiae or purpura. Course - Re-evaluation Re-evalutation: 12/14/17 07:25 62-year-old male with the after mentioned symptoms, very reproducible muscular/ motion base pain. Atypical and unlikely to be ACS. Pleuritic component along with his mild tachycardia certainly concerning for venous thromboembolic disease although the story somewhat atypical. Will obtain d-dimer screening/ rule out. Consider underlying pneumonia, pleurisy, thoracic strain. Doubt dissection. Plan to proceed with basic labs, analgesics, fluids, reassess. 12/14/17 08:26 Labs reviewed, CBC, chemistries, troponin, d-dimer and other labs are all unremarkable/normal. Patient has had marked improvement. Refuse morphine, received Tylenol. Heart rate is normalized to the mid 90s. Chest x-ray shows no acute abnormality. This point etiology is unclear, however, patient has an exquisitely reproducible component. Discharged home, will take Tylenol, follow-up with his primary care physician. 12/14/17 08:27 12 Lead ECG Analysis A 12 lead ECG is obtained and shows a sinus rhythm, normal QRS, normal QTC. There are nonspecific ST-T changes, no evidence of acute ischemic changes. - Vital Signs Vital signs: Temp Pulse Resp BP Pulse Ox 100.0 F 106 H 23 H 139/99 H 100 12/14/17 05:30 12/14/17 05:30 12/14/17 07:31 12/14/17 07:31 12/14/17 07:31 - Laboratory Result Diagrams: 12/14/17 06:47 12/14/17 06:47 Laboratory results interpreted by me: 12/14/17 06:47 WBC 11.1 H Seg Neutrophils % 81.8 H Lymphocytes % 7.3 L Absolute Neutrophils 9.1 H Discharge - Discharge Clinical Impression: Back pain Qualifiers: Back pain location: thoracic back pain Chronicity: acute Back pain laterality: right Qualified Code(s): M54.6 - Pain in thoracic spine Condition: Good Disposition: HOME, SELF-CARE Instructions: Muscle Strain ([facility])
[2017-12-14 07:28] LABS: CREATINE KINASE MB 0.96 ng/mL (<4.55)
[2017-12-14 07:30] LABS: TROPONIN I < 0.012 ng/mL
[2017-12-14] MEDS ORDERED: ACETAMINOPHEN 325 MG TABLET PO ONE (08:25)
[2017-12-14] MEDS ORDERED: ACETAMINOPHEN 325 MG TABLET ONE (08:26)
[2017-12-14 08:36] VITALS: BP 140/97
--- NOTE | 2017-12-14 10:44 | EKG REPORT ---
SEVERITY:- ABNORMAL ECG - SINUS RHYTHM RIGHT AXIS DEVIATION : Confirmed by: Ramos Peñaloza 14-Dec-2017 10:43:18
== END 2017-12-14 08:53 | disposition home or self-care (01) ==
LOC: ER 05:21
DX: M54.6 Pain in thoracic spine (principal); R00.0 Tachycardia, unspecified; I25.2 Old myocardial infarction; I10 Essential (primary) hypertension; J44.9 Chronic obstructive pulmonary disease, unspecified; Z88.8 Allergy status to other drugs, medicaments and biological substances; Z88.5 Allergy status to narcotic agent
CPT/HCPCS: 93005; 99284; 36415; 82553; 82550; 85025; 85610; 80053; 84484; 85379; 71045; 93010; J7030

== ENCOUNTER 2019-03-18 11:52 | Emergency (ER) | payer MEDICARE, OTHER ==
[2019-03-18 12:00] VITALS: BP 141/90
--- NOTE | 2019-03-18 12:09 | ER Document Report ---
ED Medical Screen (RME) - General Chief Complaint: Shoulder Pain Stated Complaint: SHOULDER PAIN Time Seen by Provider: 03/18/19 12:05 Mode of Arrival: Ambulatory Information source: Patient Notes: 64-year-old male presents to ED for complaint of pain to the left shoulder. He states he has not fallen and injured it in any way. He states is been there for about 2 weeks. States if he puts any pressure on his elbow and radiates up to his neck. He states he has never had this pain before 2 weeks ago. He states he also has a tickle in his throat. He states he has shortness of breath at times. He states he does have COPD high blood pressure high cholesterol. He states he does not smoke or use drugs but he does drink every 2 weeks. He states he was told he had a silent heart attack some years ago and he has cardiac conditions I have greeted and performed a rapid initial assessment of this patient. A comprehensive ED assessment and evaluation of the patient, analysis of test r esults and completion of medical decision making process will be conducted by an additional ED providers. TRAVEL OUTSIDE OF THE [place] IN LAST 30 DAYS: No - Related Data Allergies/Adverse Reactions: chlorthalidone [Chlorthalidone] Allergy (Verified 03/18/19 11:59) diazepam [From Valium] Allergy (Verified 03/18/19 11:59) hydrochlorothiazide [Hydrochlorothiazide] Allergy (Verified 03/18/19 11:59) lisinopril [Lisinopril] Allergy (Verified 03/18/19 11:59) meperidine HCl [From Demerol] Allergy (Verified 03/18/19 11:59) metoprolol [Metoprolol] Allergy (Verified 03/18/19 11:59) niacin [Niacin] Allergy (Verified 03/18/19 11:59) saccharin [Saccharin] Allergy (Verified 03/18/19 11:59) terazosin [Terazosin] Allergy (Verified 03/18/19 11:59) tiotropium bromide [From Spiriva with HandiHaler] Allergy (Verified 03/18/19 11:59) Past Medical History - Social History Chew tobacco use (# tins/day): No Frequency of alcohol use: Occasional Family history: Reviewed & Not Pertinent - Past Medical History Cardiac Medical History: Reports: Hx Heart Attack, Hx Hypercholesterolemia, Hx Hypertension Pulmonary Medical History: Reports: Hx COPD Denies: Hx Asthma Renal/ Medical History: Denies: Hx Peritoneal Dialysis GI Medical History: Reports: Hx Gastroesophageal Reflux Disease Past Surgical History: Reports: Hx Cholecystectomy, Hx Neurologic Surgery - leaking csf fluid from ear, Hx Orthopedic Surgery - foot - Immunizations Immunizations up to date: Yes Hx Diphtheria, Pertussis, Tetanus Vaccination: Yes Physical Exam - Vital signs Vitals: Temp Pulse Resp BP Pulse Ox 98.2 F 106 H 15 141/90 H 97 03/18/19 11:59 03/18/19 11:59 03/18/19 11:59 03/18/19 11:59 03/18/19 11:59 Course - Vital Signs Vital signs: Temp Pulse Resp BP Pulse Ox 98.2 F 106 H 15 141/90 H 97 03/18/19 11:59 03/18/19 11:59 03/18/19 11:59 03/18/19 11:59 03/18/19 11:59
[2019-03-18 12:47] LABS: HEMATOCRIT 41.1 % (37.9-51.0); HEMOGLOBIN 13.9 g/dL (13.5-17.0); LYMPHOCYTES % (AUTO) 36.2 % (13-45); MEAN CORPUSCULAR HEMOGLOBIN 31.1 pg (27.0-33.4); MEAN CORPUSCULAR HGB CONC 33.9 g/dL (32.0-36.0); MEAN CORPUSCULAR VOLUME 92 fl (80-97); PLATELET COUNT 240 10^3/uL (150-450); RED BLOOD COUNT 4.48 10^6/uL (4.35-5.55); SEGMENTED NEUTROPHILS % (AUTO) 44.9 % (42-78); WHITE BLOOD COUNT 3.4 10^3/uL (4.0-10.5)
[2019-03-18 12:48] LABS: ABSOLUTE BASOPHILS # (AUTO) 0.1 10^3/uL (0.0-0.2); ABSOLUTE EOSINOPHILS # (AUTO) 0.1 10^3/uL (0.0-0.6); ABSOLUTE LYMPHOCYTES (AUTO) 1.2 10^3/uL (0.5-4.7); ABSOLUTE MONOCYTES (AUTO) 0.5 10^3/uL (0.1-1.4); ABSOLUTE NEUT (AUTO) 1.5 10^3/uL (1.7-8.2); BASOPHILS % (AUTO) 2.4 % (0-2); EOSINOPHILS % (AUTO) 2.7 % (0-6); MONOCYTES % (AUTO) 13.8 % (3-13); TOTAL CELLS COUNTED % (AUTO) 100 %
[2019-03-18 12:53] LABS: APPEARANCE,URINE CLEAR; BILIRUBIN,URINE NEGATIVE (NEGATIVE); COLOR,URINE YELLOW; GLUCOSE, URINE NEGATIVE (NEGATIVE); KETONES,URINE NEGATIVE (NEGATIVE); PROTEIN,URINE NEGATIVE (NEGATIVE); URINE SPECIFIC GRAVITY 1.029; UROBILINOGEN,URINE NEGATIVE mg/dL (<2.0)
--- NOTE | 2019-03-18 13:07 | RADIOLOGY REPORT (SQ) ---
EXAM DESCRIPTION: SHOULDER LEFT 1 VIEW COMPLETED DATE/TIME: 03/18/2019 12:42 pm REASON FOR STUDY: Left shoulder pain and shortness of breath COMPARISON: None. NUMBER OF VIEWS: One view. TECHNIQUE: AP image acquired of the left shoulder. LIMITATIONS: None. FINDINGS: MINERALIZATION: Normal. BONES: No acute fracture. No worrisome bone lesions. JOINTS: No dislocation. VISUALIZED LUNGS AND RIBS: No pneumothorax. No rib fracture. SOFT TISSUES: No radiopaque foreign body. OTHER: No other significant finding. IMPRESSION: Limited AP view of the left shoulder reveals no acute findings. TECHNICAL DOCUMENTATION: JOB ID: [id number] [employer]- All Rights Reserved Reading location - IP/workstation name: [email or web address]
--- NOTE | 2019-03-18 13:08 | RADIOLOGY REPORT (SQ) ---
EXAM DESCRIPTION: CHEST 2 VIEWS COMPLETED DATE/TIME: 03/18/2019 12:42 pm REASON FOR STUDY: Left shoulder pain and shortness of breath COMPARISON: 06/17/2017 EXAM PARAMETERS: NUMBER OF VIEWS: two views TECHNIQUE: Digital Frontal and Lateral radiographic views of the chest acquired. RADIATION DOSE: NA LIMITATIONS: none FINDINGS: LUNGS AND PLEURA: Lung crowder are hyperexpanded. No consolidation or effusions. MEDIASTINUM AND HILAR STRUCTURES: No masses or contour abnormalities. HEART AND VASCULAR STRUCTURES: Heart normal size. No evidence for failure. BONES: No acute findings. HARDWARE: None in the chest. OTHER: No other significant finding. IMPRESSION: COPD. No acute findings. TECHNICAL DOCUMENTATION: JOB ID: [id number] [employer]- All Rights Reserved Reading location - IP/workstation name: [email or web address]
[2019-03-18 13:10] LABS: ALBUMIN 4.5 g/dL (3.5-5.0); ALKALINE PHOSPHATASE 55 U/L (38-126); ANION GAP 11 (5-19); ASPARTATE AMINO TRANSFERASE 22 U/L (17-59); BILIRUBIN,DIRECT 0.1 mg/dL (0.0-0.4); BILIRUBIN,TOTAL 0.6 mg/dL (0.2-1.3); BLOOD UREA NITROGEN 17 mg/dL (7-20); CALCIUM 9.8 mg/dL (8.4-10.2); CARBON DIOXIDE 28 mmol/L (22-30); CHLORIDE 103 mmol/L (98-107); GLUCOSE 90 mg/dL (75-110); POTASSIUM 5.3 mmol/L (3.6-5.0); TOTAL PROTEIN 7.6 g/dL (6.3-8.2)
--- NOTE | 2019-03-19 00:04 | EKG REPORT ---
SEVERITY:- ABNORMAL ECG - SINUS RHYTHM ST ELEVATION, PROBABLE EARLY REPOL ABNORMALITY : Confirmed by: Ramos Peñaloza 19-Mar-2019 00:04:20
--- NOTE | 2019-03-19 09:02 | EKG REPORT ---
SEVERITY:- OTHERWISE NORMAL ECG - SINUS RHYTHM RIGHT AXIS DEVIATION : Confirmed on behalf of: Ramos Peñaloza 19-Mar-2019 09:01:42
== END 2019-03-18 16:33 | disposition left against medical advice (07) ==
LOC: ER 11:52
DX: M25.512 Pain in left shoulder (principal); E78.00 Pure hypercholesterolemia, unspecified; I10 Essential (primary) hypertension; J44.9 Chronic obstructive pulmonary disease, unspecified; I25.2 Old myocardial infarction; Z90.49 Acquired absence of other specified parts of digestive tract
CPT/HCPCS: 36415; 71046; 80053; 81001; 83690; 84484; 85025; 93005; 93010; 99281